=== PATIENT | male | born 2000 | race Caucasian/White ===

== ENCOUNTER 2022-10-04 23:05 | Emergency (ER) | payer MEDICAID, SELFPAY ==
[2022-10-04 23:17] VITALS: BP 138/89; PULSE 99; RESP 18; TEMP 36.8; O2SAT 98; BMI 25.0
--- NOTE | 2022-10-05 00:58 | ED_ITS ---
HPI - Allergic Reaction General Chief complaint: Allergic Reaction Stated complaint: allergic reaction Time Seen by Provider: 10/05/22 00:43 Source: patient Mode of arrival: ambulatory Limitations: no limitations History of Present Illness HPI narrative: Patient with chronic eczema and comes here as he does not have any cream to apply. Rash is going on for long time no follow-up to PCP Related Data Previous Rx's Medication Instructions Recorded betamethasone dipropionate 0.05 % 1 appl topical DAILY PRN rash #45 10/05/22 topical cream grams prednisone 20 mg tablet 40 mg PO DAILY #10 tabs 10/05/22 Allergies Allergy/AdvReac Type Severity Reaction Status Date / Time SEASONAL ALLERGIES Allergy Mild STUFFY NOSE Uncoded 07/09/20 16:40 Review of Systems Review of Systems: Yes all other systems are reviewed and are negative [facility] Social History Social History Advance Directives: No Advance Directives Information Provided: Yes Physical Exam ED Vital Signs: Vital Signs - 24 hr 10/04/22 23:17 Temperature 98.3 F Pulse Rate 99 Respiratory Rate 18 Blood Pressure 138/89 Pulse Oximetry 98 Oxygen Delivery Method Room Air BMI result Body Mass Index 25.0 Appearance: Alert. Oriented X3. No acute distress. CVS: Normal heart rate and rhythm. Pulses normal. Respiratory: No respiratory distress. Equal air entry bilateral, no wh eezing/rales/rhonchi Abdomen: Soft and nontender. Bowel sounds are present, no mass palpable, no CVA tenderness Skin: Skin warm and dry. Diffuse eczema bilateral on the trunk and extremities. Extremities: No lower extremity edema. No calf tenderness Neuro: Oriented X 3. No motor deficit. Medications Administered Discontinued Medications Generic Name Dose Route Start Last Admin Trade Name Freq PRN Reason Stop Dose Admin Prednisone 60 mg 10/05/22 00:58 10/05/22 01:02 Prednisone 20 Mg Tablet PO 10/05/22 00:59 60 mg ONCE ONE Administration Discharge Plan Discharge Clinical Impression: Chronic eczema Patient Disposition: Home, Self-Care Instructions: Dermatitis (ED) Additional Instructions: Take medication as prescribed and follow with PCP Prescriptions: New prednisone 20 mg tablet 40 mg PO DAILY Qty: 10 0RF betamethasone dipropionate 0.05 % cream 1 appl topical DAILY PRN (Reason: rash) Qty: 45 0RF Interventions: ED Discharge Assessment Last Done: 10/05/22 01:05 Discharge Date/Time: 10/05/22 01:07
[2022-10-05] MEDS: predniSONE 20 MG TABLET 60 MG PO (01:02)
--- OUTSIDE RECORDS SUMMARY | 2022-10-05 01:08 | XMS_ITS ---
:2000 Author Care Team Providers Name Role Phone DR. ABY LEE Referring Provider [phone] GERHARD RIVAS MD Primary Care Provider [phone] Allergies Code Code System Name Reaction Severity Status Onset NKDA ? Medications Name Status Start Date Stop Date ? ? fluticasone propionate 50 mcg/actuation nasal spray,suspension A ctive ? Not available SPRAY 1 SPRAY INTO EACH NOSTRIL EVERY DAY loratadine 10 mg tablet Active ? Not avai lable TAKE 1 TABLET BY MOUTH EVERY DAY mometasone 0.1 % topical cream Active ? N ot available APPLY TO AFFECTED AREA EVERY DAY FOR 14 DAYS triamcinolone acetonide 0.1 % topical cream Completed ? 08/16/2018 Problems Name Status Onset Date Source ? Systolic Hypertension Active 11/07/2018 ? Diastolic Hypertension Active 11/07/2018 ? Procedures None recorded. Results Lab Results None recorded. Past Encounters None recorded. Social History Tobacco Smoking Status Current Some Day Smoker Vaccine List None recorded. Plan of Care Reminders Provider Appointments None recorded. ? ? Lab None recorded. ? ? Referral None recorded. ? ? Procedures None recorded. ? ? Surgeries None recorded. ? ? Imaging None recorded. ? ? Vitals 11/07/2018 02:00PM FOLLOW UP (60) Height Weight BMI Blood Pressure 185 cm 112.4 kg 32.8 kg/m2 (1) 155/75 mm[H g] (2) 163/90 mm[Hg ] (3) 156/63 mm[Hg ] 08/16/2018 12:00PM NEW PATIENT Height Weight BMI Blood Pressure 185 cm 110.5 kg 32.3 kg/m2 (1) 145/75 mm[H g] (2) 136/73 mm[Hg ] (3) 132/73 mm[Hg ] (4) 128/77 mm[Hg ] (5) 119/74 mm[Hg ] (6) 150/87 mm[Hg ] (7) 180/133 mm[H g]
== END 2022-10-05 01:07 | disposition home or self-care (01) ==
LOC: HO.ED 10-05 01:06
PROVIDERS: Emergency Provider Internal Medicine; PCP Internal Medicine
DX: L30.9 Dermatitis, unspecified (principal)
CPT/HCPCS: 99282; 99283